=== PATIENT | male | born 1940 | race Caucasian/White ===

== ENCOUNTER 2016-10-19 15:45 | Inpatient (IN) | payer OTHER ==
[2016-10-20] MEDS ORDERED: ONDANSETRON DISINTEGRATING 4 MG TAB PO PRN ×2 (12:54→13:59)
[2016-10-20] MEDS ORDERED: ONDANSETRON DISINTEGRATING 4 MG TAB ONE (13:00)
[2016-10-20] MEDS ORDERED: SIMETHICONE 80 MG TAB CHEW PO PRN (13:59)
[2016-10-20] MEDS ORDERED: ACET/CAFFEINE/BUTA FIORICET 1 EACH TAB PO PRN (13:59)
[2016-10-20] MEDS ORDERED: BISACODYL 10 MG SUPP PR PRN (13:59)
[2016-10-20] MEDS ORDERED: HYDROCORTISONE 2.5% 30 GM CRTUBE TP PRN (13:59)
[2016-10-20] MEDS ORDERED: CARISOPRODOL 350 MG TAB PO PRN ×2 (14:25→14:35)
[2016-10-20] MEDS: ACETAMINOPHEN 500 MG TAB PO PRN (15:55)
[2016-10-20] MEDS: GABAPENTIN 100 MG CAP PO SCH ×2 (15:55→21:31)
[2016-10-20] MEDS: TAMSULOSIN HCL 0.4 MG CAP PO SCH (15:58)
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
[2016-10-20 19:04] LABS: COLOR YELLOW; LEUKOCYTE ESTERASE,URINE 2+ (NEGATIVE); NITRITE,URINE NEGATIVE (NEGATIVE)
[2016-10-20 19:09] LABS: BACTERIA TRACE /hpf (NONE SEEN); MUCUS TRACE /lpf (NONE-1+); RBC,URINE 50-182 /hpf (0-3); WBC,URINE 50-182 /hpf (0-3)
--- NOTE | 2016-10-20 19:31 | PDOREHIP ---
Admission [facility] - Admission - 3 Day Assessment Period Admission Date/Day 1: 10/20/16 Day 2: 10/21/16 Day 3: 10/22/16 - Active Diagnoses Comorbidities and Co-existing Conditions at Admission: 28176. None of the Above - Skin Conditions Unhealed Pressure Ulcer (1 or more/Stage 1 or >)-Admission: 0. No
[2016-10-20] MEDS: QUEtiapine FUMARATE 25 MG TAB PO SCH (19:59)
[2016-10-20] MEDS: PANTOPRAZOLE SODIUM 40 MG TAB PO SCH (19:59)
[2016-10-20] MEDS: ENOXAPARIN 30 MG/0.3 ML SYR SC SCH (20:00)
[2016-10-20] MEDS ORDERED: NON-FORMULARY NEW DRUG (Melatonin [Melatonin 5 Mg] 5 MG) PO SCH (21:00)
[2016-10-20] MEDS ORDERED: NON-FORMULARY NEW DRUG (Omeprazole [Omeprazole] 40 MG) PO SCH (21:00)
[2016-10-20] MEDS ORDERED: QUEtiapine FUMARATE 50 MG TAB PO SCH ×2 (21:00)
[2016-10-20] MEDS ORDERED: NS 500 ML IV ONE (22:00)
[2016-10-21] MEDS: POLYETHYLENE GLYCOL 3350 17 GM PKT PO SCH (08:22)
[2016-10-21] MEDS: NIACIN 500 MG TAB PO SCH (08:22)
[2016-10-21] MEDS: TAMSULOSIN HCL 0.4 MG CAP PO SCH (08:23)
[2016-10-21] MEDS: ASPIRIN EC 81 MG TAB PO SCH (08:23)
[2016-10-21] MEDS: ROSUVASTATIN CALCIUM 20 MG TAB PO SCH (08:23)
[2016-10-21] MEDS: PANTOPRAZOLE SODIUM 40 MG TAB PO SCH ×2 (08:23→20:08)
[2016-10-21] MEDS: ENOXAPARIN 30 MG/0.3 ML SYR SC SCH ×2 (08:24→20:10)
[2016-10-21] MEDS: ESCITALOPRAM OXALATE 10 MG TAB PO SCH (08:24)
[2016-10-21] MEDS: GABAPENTIN 100 MG CAP PO SCH ×3 (08:24→20:08)
[2016-10-21] MEDS ORDERED: Herbals/Supplements -Info Only PO SCH (09:00)
[2016-10-21 09:02] LABS: % IMMATURE GRANULYOCYTES 0.3 % (0.0-1.1); ABSOLUTE IMMATURE GRANULOCYTES 0.02 10^3/uL (0.00-0.10); ADD DIFF? NO; ADD MORPH? NO; ADD SCAN? NO; ATYPICAL LYMPHOCYTE FLAG 0 (0-99); FRAGMENT RBC FLAG 0 (0-99); HEMATOCRIT 27.1 % (40.0-51.0); HEMOGLOBIN 8.7 g/dL (13.7-17.5); LEFT SHIFT FLG 10 (0-99); LIPEMIA HEMOLYSIS FLAG 80 (0-99); MEAN CELL HEMOGLOBIN CONCENTR. 32.1 g/dL (32.4-36.7); MEAN CELL VOLUME 93.4 fL (81.5-99.8); MEAN PLATELET VOLUME 10.9 fL (8.7-11.7); PLATELET CLUMPS FLAG 0 (0-99); PLATELET COUNT 225 10^3/uL (150-400); RED CELL DISTRIBUTION WIDTH 14.5 % (11.5-15.2)
[2016-10-21 09:25] LABS: ALANINE AMINOTRANSFERASE 36 IU/L (21-72); ALBUMIN 2.3 g/dL (3.5-5.0); ALKALINE PHOSPHATASE 99 IU/L (38-126); ANION GAP 7 mEq/L (8-16); ASPARTATE AMINOTRANSFERASE 29 IU/L (17-59); BILIRUBIN,TOTAL 0.6 mg/dL (0.1-1.4); CALCIUM 7.9 mg/dL (8.5-10.4); CARBON DIOXIDE 25 mEq/l (22-31); CHLORIDE 104 mEq/L (97-110); CREATININE 1.2 mg/dL (0.7-1.3); GLOMERULAR FILTRATION RATE 59; GLUCOSE 89 mg/dL (70-100); POTASSIUM 3.8 mEq/L (3.5-5.2); SODIUM 136 mEq/L (134-144)
[2016-10-21] MEDS ORDERED: SENNOSIDES 17.6 MG/10 ML UDL PO PRN (10:01)
[2016-10-21] MEDS ORDERED: SENNOSIDES 1 TAB PO PRN (11:14)
[2016-10-21] MEDS ORDERED: CIPROFLOXACIN 500 MG TAB PO ONE (11:39)
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
[2016-10-21] MEDS: PROMETHAZINE HCL 25 MG TAB PO PRN (20:06)
[2016-10-21] MEDS: QUEtiapine FUMARATE 25 MG TAB PO SCH (20:08)
[2016-10-21] MEDS: CIPROFLOXACIN 500 MG TAB PO SCH (20:08)
[2016-10-22] MEDS: GABAPENTIN 100 MG CAP PO SCH ×3 (08:58→21:04)
[2016-10-22] MEDS: ASPIRIN EC 81 MG TAB PO SCH (08:58)
[2016-10-22] MEDS: TAMSULOSIN HCL 0.4 MG CAP PO SCH (08:58)
[2016-10-22] MEDS: ESCITALOPRAM OXALATE 10 MG TAB PO SCH (08:58)
[2016-10-22] MEDS: ROSUVASTATIN CALCIUM 20 MG TAB PO SCH (08:58)
[2016-10-22] MEDS: NIACIN 500 MG TAB PO SCH (08:58)
[2016-10-22] MEDS: POLYETHYLENE GLYCOL 3350 17 GM PKT PO SCH (08:58)
[2016-10-22] MEDS: PANTOPRAZOLE SODIUM 40 MG TAB PO SCH ×2 (08:59→20:55)
[2016-10-22] MEDS: ENOXAPARIN 30 MG/0.3 ML SYR SC SCH ×2 (08:59→20:54)
[2016-10-22] MEDS: CIPROFLOXACIN 500 MG TAB PO SCH (09:23)
[2016-10-22] MEDS ORDERED: MAGNESIUM HYDROXIDE 30 ML UDCUP PO PRN (16:09)
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
[2016-10-22] MEDS: NITROFURANTOIN MACROBID 100 MG CAP PO SCH ×2 (17:17→20:55)
[2016-10-22] MEDS: PROMETHAZINE HCL 25 MG TAB PO PRN (17:27)
[2016-10-22] MEDS: QUEtiapine FUMARATE 25 MG TAB PO SCH (20:54)
[2016-10-22] MEDS: SENNOSIDES 1 TAB PO SCH (20:55)
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
[2016-10-23] MEDS: traMADol 50 MG TAB PO PRN (09:41)
[2016-10-23] MEDS: NIACIN 500 MG TAB PO SCH (09:42)
[2016-10-23] MEDS: SENNOSIDES 1 TAB PO SCH ×2 (09:42→20:19)
[2016-10-23] MEDS: TAMSULOSIN HCL 0.4 MG CAP PO SCH (09:42)
[2016-10-23] MEDS: ESCITALOPRAM OXALATE 10 MG TAB PO SCH (09:42)
[2016-10-23] MEDS: POLYETHYLENE GLYCOL 3350 17 GM PKT PO SCH (09:42)
[2016-10-23] MEDS: ROSUVASTATIN CALCIUM 20 MG TAB PO SCH (09:42)
[2016-10-23] MEDS: ENOXAPARIN 30 MG/0.3 ML SYR SC SCH ×2 (09:42→20:20)
[2016-10-23] MEDS: NITROFURANTOIN MACROBID 100 MG CAP PO SCH ×2 (09:42→20:19)
[2016-10-23] MEDS: GABAPENTIN 100 MG CAP PO SCH ×3 (09:42→21:09)
[2016-10-23] MEDS: PANTOPRAZOLE SODIUM 40 MG TAB PO SCH ×2 (09:43→20:19)
[2016-10-23] MEDS: ASPIRIN EC 81 MG TAB PO SCH (09:43)
[2016-10-23] MEDS: QUEtiapine FUMARATE 25 MG TAB PO SCH (20:24)
[2016-10-24] MEDS: traMADol 50 MG TAB PO PRN (07:10)
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
[2016-10-24] MEDS: ENOXAPARIN 30 MG/0.3 ML SYR SC SCH ×2 (09:35→21:01)
[2016-10-24] MEDS: POLYETHYLENE GLYCOL 3350 17 GM PKT PO SCH (09:38)
[2016-10-24] MEDS: ASPIRIN EC 81 MG TAB PO SCH (09:38)
[2016-10-24] MEDS: ESCITALOPRAM OXALATE 10 MG TAB PO SCH (09:39)
[2016-10-24] MEDS: PANTOPRAZOLE SODIUM 40 MG TAB PO SCH ×2 (09:41→21:00)
[2016-10-24] MEDS: NIACIN 500 MG TAB PO SCH (09:41)
[2016-10-24] MEDS: GABAPENTIN 100 MG CAP PO SCH ×3 (09:41→21:00)
[2016-10-24] MEDS: ROSUVASTATIN CALCIUM 20 MG TAB PO SCH (09:42)
[2016-10-24] MEDS: SENNOSIDES 1 TAB PO SCH ×2 (09:43→21:00)
[2016-10-24] MEDS: TAMSULOSIN HCL 0.4 MG CAP PO SCH (09:43)
[2016-10-24] MEDS: NITROFURANTOIN MACROBID 100 MG CAP PO SCH ×2 (09:44→21:00)
[2016-10-24] MEDS ORDERED: NS W/ 20 KCl/L 500 ML IV SCH (15:15)
[2016-10-24] MEDS ORDERED: NS 500 ML IV SCH (15:30)
[2016-10-24] MEDS: QUEtiapine FUMARATE 25 MG TAB PO SCH (21:00)
[2016-10-25] MEDS: ENOXAPARIN 30 MG/0.3 ML SYR SC SCH ×2 (09:30→20:15)
[2016-10-25] MEDS: ASPIRIN EC 81 MG TAB PO SCH (09:32)
[2016-10-25] MEDS: ESCITALOPRAM OXALATE 10 MG TAB PO SCH (09:32)
[2016-10-25] MEDS: GABAPENTIN 100 MG CAP PO SCH ×3 (09:33→20:24)
[2016-10-25] MEDS: NIACIN 500 MG TAB PO SCH (09:33)
[2016-10-25] MEDS: SENNOSIDES 1 TAB PO SCH ×2 (09:34→20:15)
[2016-10-25] MEDS: ROSUVASTATIN CALCIUM 20 MG TAB PO SCH (09:34)
[2016-10-25] MEDS: POLYETHYLENE GLYCOL 3350 17 GM PKT PO SCH (09:34)
[2016-10-25] MEDS: TAMSULOSIN HCL 0.4 MG CAP PO SCH (09:34)
[2016-10-25] MEDS: NITROFURANTOIN MACROBID 100 MG CAP PO SCH ×2 (09:34→20:15)
[2016-10-25] MEDS: PANTOPRAZOLE SODIUM 40 MG TAB PO SCH ×2 (09:34→20:25)
[2016-10-25] MEDS: traMADol 50 MG TAB PO PRN (09:44)
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
[2016-10-25] MEDS: ACETAMINOPHEN 500 MG TAB PO PRN (16:35)
[2016-10-25] MEDS: QUEtiapine FUMARATE 25 MG TAB PO SCH (20:14)
[2016-10-26] MEDS: ENOXAPARIN 30 MG/0.3 ML SYR SC SCH ×2 (09:36→20:55)
[2016-10-26] MEDS: ASPIRIN EC 81 MG TAB PO SCH (09:36)
[2016-10-26] MEDS: NITROFURANTOIN MACROBID 100 MG CAP PO SCH ×2 (09:37→20:54)
[2016-10-26] MEDS: NIACIN 500 MG TAB PO SCH (09:37)
[2016-10-26] MEDS: ESCITALOPRAM OXALATE 10 MG TAB PO SCH (09:37)
[2016-10-26] MEDS: GABAPENTIN 100 MG CAP PO SCH (09:37)
[2016-10-26] MEDS: TAMSULOSIN HCL 0.4 MG CAP PO SCH (09:38)
[2016-10-26] MEDS: POLYETHYLENE GLYCOL 3350 17 GM PKT PO SCH (09:38)
[2016-10-26] MEDS: SENNOSIDES 1 TAB PO SCH ×3 (09:38→20:55)
[2016-10-26] MEDS: PANTOPRAZOLE SODIUM 40 MG TAB PO SCH ×2 (09:38→20:54)
[2016-10-26] MEDS: ROSUVASTATIN CALCIUM 20 MG TAB PO SCH (09:38)
[2016-10-26] MEDS: traMADol 50 MG TAB PO PRN (09:48)
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
[2016-10-26] MEDS: GABAPENTIN 300 MG CAP PO SCH ×2 (17:00→20:54)
[2016-10-26] MEDS: QUEtiapine FUMARATE 25 MG TAB PO SCH (20:55)
[2016-10-27] MEDS: POLYETHYLENE GLYCOL 3350 17 GM PKT PO SCH (08:45)
[2016-10-27] MEDS: ROSUVASTATIN CALCIUM 20 MG TAB PO SCH (08:46)
[2016-10-27] MEDS: ASPIRIN EC 81 MG TAB PO SCH (08:47)
[2016-10-27] MEDS: ESCITALOPRAM OXALATE 10 MG TAB PO SCH (08:47)
[2016-10-27] MEDS: ENOXAPARIN 30 MG/0.3 ML SYR SC SCH ×2 (08:47→20:36)
[2016-10-27] MEDS: GABAPENTIN 300 MG CAP PO SCH ×3 (08:48→20:35)
[2016-10-27] MEDS: NIACIN 500 MG TAB PO SCH (08:50)
[2016-10-27] MEDS: NITROFURANTOIN MACROBID 100 MG CAP PO SCH ×2 (08:51→20:35)
[2016-10-27] MEDS: TAMSULOSIN HCL 0.4 MG CAP PO SCH (08:51)
[2016-10-27] MEDS: SENNOSIDES 1 TAB PO SCH ×2 (08:51→20:35)
[2016-10-27] MEDS: PANTOPRAZOLE SODIUM 40 MG TAB PO SCH ×2 (08:51→20:35)
[2016-10-27] MEDS: traMADol 50 MG TAB PO PRN (10:40)
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
[2016-10-27] MEDS: QUEtiapine FUMARATE 25 MG TAB PO SCH (20:35)
[2016-10-28] MEDS: ENOXAPARIN 30 MG/0.3 ML SYR SC SCH ×2 (09:53→20:09)
[2016-10-28] MEDS: GABAPENTIN 300 MG CAP PO SCH ×3 (09:53→20:10)
[2016-10-28] MEDS: ESCITALOPRAM OXALATE 10 MG TAB PO SCH (09:53)
[2016-10-28] MEDS: ASPIRIN EC 81 MG TAB PO SCH (09:53)
[2016-10-28] MEDS: POLYETHYLENE GLYCOL 3350 17 GM PKT PO SCH (09:54)
[2016-10-28] MEDS: NIACIN 500 MG TAB PO SCH (09:54)
[2016-10-28] MEDS: PANTOPRAZOLE SODIUM 40 MG TAB PO SCH ×2 (09:54→20:10)
[2016-10-28] MEDS: NITROFURANTOIN MACROBID 100 MG CAP PO SCH ×2 (09:54→20:10)
[2016-10-28] MEDS: ROSUVASTATIN CALCIUM 20 MG TAB PO SCH (09:55)
[2016-10-28] MEDS: SENNOSIDES 1 TAB PO SCH ×2 (09:55→20:10)
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
[2016-10-28 17:24] LABS: % IMMATURE GRANULYOCYTES 0.4 % (0.0-1.1); ABSOLUTE IMMATURE GRANULOCYTES 0.03 10^3/uL (0.00-0.10); ADD DIFF? NO; ADD MORPH? NO; ADD SCAN? NO; ATYPICAL LYMPHOCYTE FLAG 0 (0-99); FRAGMENT RBC FLAG 0 (0-99); HEMATOCRIT 34.2 % (40.0-51.0); HEMOGLOBIN 10.8 g/dL (13.7-17.5); LEFT SHIFT FLG 0 (0-99); LIPEMIA HEMOLYSIS FLAG 80 (0-99); MEAN CELL HEMOGLOBIN 30.3 pg (27.9-34.1); MEAN CELL HEMOGLOBIN CONCENTR. 31.6 g/dL (32.4-36.7); MEAN CELL VOLUME 95.8 fL (81.5-99.8); MEAN PLATELET VOLUME 10.4 fL (8.7-11.7); PLATELET CLUMPS FLAG 10 (0-99); PLATELET COUNT 270 10^3/uL (150-400); RED BLOOD CELL COUNT 3.57 10^6/uL (4.40-6.38); RED CELL DISTRIBUTION WIDTH 14.6 % (11.5-15.2)
[2016-10-29] MEDS: ENOXAPARIN 30 MG/0.3 ML SYR SC SCH ×2 (08:35→20:28)
[2016-10-29] MEDS: POLYETHYLENE GLYCOL 3350 17 GM PKT PO SCH (08:37)
[2016-10-29] MEDS: ESCITALOPRAM OXALATE 10 MG TAB PO SCH (08:39)
[2016-10-29] MEDS: ASPIRIN EC 81 MG TAB PO SCH (08:39)
[2016-10-29] MEDS: GABAPENTIN 300 MG CAP PO SCH ×3 (08:40→20:28)
[2016-10-29] MEDS: NITROFURANTOIN MACROBID 100 MG CAP PO SCH ×2 (08:41→20:28)
[2016-10-29] MEDS: PANTOPRAZOLE SODIUM 40 MG TAB PO SCH ×2 (08:41→20:28)
[2016-10-29] MEDS: SENNOSIDES 1 TAB PO SCH ×2 (08:42→20:28)
[2016-10-29] MEDS: ROSUVASTATIN CALCIUM 20 MG TAB PO SCH (08:42)
[2016-10-29] MEDS: NIACIN 500 MG TAB PO SCH (08:44)
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
[2016-10-30] MEDS: POLYETHYLENE GLYCOL 3350 17 GM PKT PO SCH (08:30)
[2016-10-30] MEDS: ESCITALOPRAM OXALATE 10 MG TAB PO SCH (08:32)
[2016-10-30] MEDS: ASPIRIN EC 81 MG TAB PO SCH (08:32)
[2016-10-30] MEDS: NITROFURANTOIN MACROBID 100 MG CAP PO SCH (08:33)
[2016-10-30] MEDS: PANTOPRAZOLE SODIUM 40 MG TAB PO SCH ×2 (08:33→21:22)
[2016-10-30] MEDS: GABAPENTIN 300 MG CAP PO SCH ×3 (08:33→21:22)
[2016-10-30] MEDS: SENNOSIDES 1 TAB PO SCH ×2 (08:33→21:22)
[2016-10-30] MEDS: ROSUVASTATIN CALCIUM 20 MG TAB PO SCH (08:34)
[2016-10-30] MEDS: NIACIN 500 MG TAB PO SCH (08:35)
[2016-10-30] MEDS: ENOXAPARIN 30 MG/0.3 ML SYR SC SCH ×2 (08:35→21:26)
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
[2016-10-30 18:48] VITALS: O2SAT 94
[2016-10-30] MEDS ORDERED: ENOXAPARIN 60 MG/0.6 ML SYR SC ONE (21:00)
[2016-10-31] MEDS: ASPIRIN EC 81 MG TAB PO SCH (08:05)
[2016-10-31] MEDS: ESCITALOPRAM OXALATE 10 MG TAB PO SCH (08:06)
[2016-10-31] MEDS: NIACIN 500 MG TAB PO SCH (08:06)
[2016-10-31] MEDS: PANTOPRAZOLE SODIUM 40 MG TAB PO SCH (08:06)
[2016-10-31] MEDS: GABAPENTIN 300 MG CAP PO SCH ×2 (08:06→16:31)
[2016-10-31] MEDS: POLYETHYLENE GLYCOL 3350 17 GM PKT PO SCH (08:06)
[2016-10-31] MEDS: ROSUVASTATIN CALCIUM 20 MG TAB PO SCH (08:07)
[2016-10-31] MEDS: SENNOSIDES 1 TAB PO SCH (08:07)
[2016-10-31 08:10] VITALS: RESP 14; TEMP 98.3
[2016-10-31] MEDS: ENOXAPARIN 30 MG/0.3 ML SYR SC SCH (10:18)
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
[2016-10-31] MEDS: traMADol 50 MG TAB PO PRN (13:16)
--- NOTE | 2016-10-31 14:49 | CPEKG ---
Heart Rate: 74 RR Interval: 811 P-R Interval: 152 QRSD Interval: 92 QT Interval: 452 QTC Interval: 502 P [place]: -15 QRS [place]: -48 T Wave [place]: -67 EKG Severity - ABNORMAL ECG - EKG Impression: SINUS RHYTHM EKG Impression: LEFT ANTERIOR FASCICULAR BLOCK EKG Impression: ABNORMAL T, PROBABLE ISCHEMIA, INFERIOR LEADS EKG Impression: PROLONGED QT INTERVAL Electronically Signed By: Timothy Marie 31-Oct-2016 17:42:57
[2016-10-31 15:07] LABS: HEMATOCRIT 34.7 % (40.0-51.0); HEMOGLOBIN 11.2 g/dL (13.7-17.5); MEAN CELL HEMOGLOBIN 29.9 pg (27.9-34.1); MEAN CELL HEMOGLOBIN CONCENTR. 32.3 g/dL (32.4-36.7); MEAN CELL VOLUME 92.5 fL (81.5-99.8); RED BLOOD CELL COUNT 3.75 10^6/uL (4.40-6.38); RED CELL DISTRIBUTION WIDTH 14.3 % (11.5-15.2)
[2016-10-31 15:15] LABS: ANION GAP 9 mEq/L (8-16); CALCIUM 8.9 mg/dL (8.5-10.4); CARBON DIOXIDE 25 mEq/l (22-31); CHLORIDE 103 mEq/L (97-110); CREATININE 0.8 mg/dL (0.7-1.3); GLOMERULAR FILTRATION RATE > 60; GLUCOSE 99 mg/dL (70-100); SODIUM 137 mEq/L (134-144)
[2016-10-31 15:21] VITALS: BP 109/64; PULSE 77
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
[2016-10-31 18:00] LABS: MAGNESIUM 1.7 mg/dL (1.6-2.3)
[2016-10-31 18:12] LABS: CREATINE KINASE-MB FRACTION 0.74 ng/mL (0-3.19); TROPONIN I 0.029 ng/mL (0-0.034)
[2016-10-31] MEDS ORDERED: NIACIN 500 MG TAB PO SCH (21:00)
[2016-11-01] MEDS ORDERED: NIACIN 500 MG TAB PO SCH (21:00)
== END 2016-10-31 18:55 | disposition still patient (30) | DRG 949 ==
LOC: EEVIPCON 10-20 12:36 → BREH 10-20 12:36
PROVIDERS: ADMIT Internal Medicine; ATTEND Internal Medicine
PROC: F08Z7ZZ Vocational Activities and Functional Community or Work Reintegration Skills Treatment (ICD-10-PCS; principal; 2016-10-20)
PROC: F0636ZZ Communicative/Cognitive Integration Skills Treatment of Neurological System - Whole Body (ICD-10-PCS; principal; 2016-10-20)
PROC: F07M3ZZ Motor Function Treatment of Musculoskeletal System - Whole Body (ICD-10-PCS; principal; 2016-10-20)
DX: Z48.811 Encounter for surgical aftercare following surgery on the nervous system (principal); S06.5X9D Traumatic subdural hemorrhage with loss of consciousness of unspecified duration, subsequent encounter; S12.601D Unspecified nondisplaced fracture of seventh cervical vertebra, subsequent encounter for fracture with routine healing; S22.080D Wedge compression fracture of T11-T12 vertebra, subsequent encounter for fracture with routine healing; S32.020D Wedge compression fracture of second lumbar vertebra, subsequent encounter for fracture with routine healing; S32.030D Wedge compression fracture of third lumbar vertebra, subsequent encounter for fracture with routine healing; S22.20XD Unspecified fracture of sternum, subsequent encounter for fracture with routine healing; S22.39XD Fracture of one rib, unspecified side, subsequent encounter for fracture with routine healing; S04.011D Injury of optic nerve, right eye, subsequent encounter; V49.40XD Driver injured in collision with unspecified motor vehicles in traffic accident, subsequent encounter; R11.0 Nausea; F05 Delirium due to known physiological condition; K26.3 Acute duodenal ulcer without hemorrhage or perforation; D64.89 Other specified anemias; J90 Pleural effusion, not elsewhere classified; M48.07 Spinal stenosis, lumbosacral region; M48.04 Spinal stenosis, thoracic region; M48.02 Spinal stenosis, cervical region; E78.5 Hyperlipidemia, unspecified; G14 Postpolio syndrome; D62 Acute posthemorrhagic anemia; N39.0 Urinary tract infection, site not specified; B95.2 Enterococcus as the cause of diseases classified elsewhere; K59.00 Constipation, unspecified
CPT/HCPCS: 92507-GN; 92522-GN; 97110-GO; 97110-GP; 97112-GP; 97116-GP; 97140-GO; 97162-GP; 97166-GO; 97530-GO; 97530-GP; 97532-GO; 97535-GO; J1650

== ENCOUNTER 2016-10-31 17:14 | Inpatient (IN) | payer OTHER ==
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
--- NOTE | 2016-10-31 17:28 | CPEKG ---
Heart Rate: 86 RR Interval: 698 P-R Interval: 156 QRSD Interval: 90 QT Interval: 404 QTC Interval: 484 P [place]: 75 QRS [place]: -47 T Wave [place]: -62 EKG Severity - ABNORMAL ECG - EKG Impression: SINUS RHYTHM EKG Impression: PROBABLE INFERIOR INFARCT, AGE INDETERMINATE EKG Impression: LATERAL LEADS ARE ALSO INVOLVED EKG Impression: BORDERLINE PROLONGED QT INTERVAL Electronically Signed By: Timothy Marie 31-Oct-2016 17:42:51
[2016-10-31 17:30] LABS: % IMMATURE GRANULYOCYTES 0.4 % (0.0-1.1); ABSOLUTE IMMATURE GRANULOCYTES 0.03 10^3/uL (0.00-0.10); ADD DIFF? NO; ADD MORPH? NO; ADD SCAN? NO; ATYPICAL LYMPHOCYTE FLAG 10 (0-99); FRAGMENT RBC FLAG 0 (0-99); HEMATOCRIT 34.3 % (40.0-51.0); HEMOGLOBIN 11.3 g/dL (13.7-17.5); LEFT SHIFT FLG 0 (0-99); LIPEMIA HEMOLYSIS FLAG 80 (0-99); MEAN CELL HEMOGLOBIN CONCENTR. 32.9 g/dL (32.4-36.7); MEAN PLATELET VOLUME 10.3 fL (8.7-11.7); PLATELET CLUMPS FLAG 10 (0-99); PLATELET COUNT 219 10^3/uL (150-400); RED BLOOD CELL COUNT 3.65 10^6/uL (4.40-6.38); RED CELL DISTRIBUTION WIDTH 14.2 % (11.5-15.2)
[2016-10-31 17:47] LABS: ANION GAP 9 mEq/L (8-16); CALCIUM 8.9 mg/dL (8.5-10.4); CARBON DIOXIDE 26 mEq/l (22-31); CHLORIDE 102 mEq/L (97-110); CREATININE 0.7 mg/dL (0.7-1.3); GLOMERULAR FILTRATION RATE > 60; GLUCOSE 92 mg/dL (70-100); POTASSIUM 3.9 mEq/L (3.5-5.2); SODIUM 137 mEq/L (134-144)
--- NOTE | 2016-10-31 18:12 | DX ---
AP and lateral chest History: Chest pain, from rehabilitation. Reason trauma. Comparison: Portable chest October 19, 2016. Outside MR thoracic and lumbar spine October 08, 2016. Findings: A small right pneumothorax is new since the comparison. There is improved aeration of the r ight lung base with decreased consolidation and a small pleural effusion. The left lung is clear. Hea rt size is normal. There is no mediastinal shift. Minimally displaced lateral right seventh rib and m ildly displaced posterior right ninth rib fractures are unchanged. Mild compression fracture at T12 a nd moderate compression fracture at L1 and appears stable. Cervical ribs are noted. Impression: 1. Small right pneumothorax, new since October 19, without evidence of tension. 2. Stable right seventh and ninth rib fractures. 3. Improved small right pleural effusion with basilar consolidation. Findings discussed with Timothy Marie 10/31/2016 at 1805 hours.
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
[2016-10-31] MEDS ORDERED: HYDROmorphONE/DILAUDID 1 MG/ML SYR ONE (20:25)
--- NOTE | 2016-10-31 20:51 | CT ---
CT of the Chest (Without Contrast) Clinical Indications: Trauma. Known effusion. Technique: Multidetector helical CT imaging was performed from the superior thoracic inlet to the di aphragm. The radiologist manipulated images at the computer workstation. Dose reduction techniques were utilized. Comparison: MRIs October 08, 2016. No recent CT scan. January 28, 2008. Findings: Lung windows: The patient has a moderate right-sided pleural effusion that appears to be layering. There is a small right-sided pneumothorax. There is a partially healed right posterior rib fracture at T12, T11, and T9. The rib fractures at T10, T11, and T12 are comminuted, with a large gap at the T10th one. Nondisplaced fractures are also present at T8, with partial healing. The spinous process fractures of L1, L2 also show mild interval healing. The compression deformity o f L2 and T12 are unchanged in degree compared to the MRI performed in September. No new compression de formities. No left-sided fractures. No new compression fracture of the thoracic spine. The expanded lung parenchyma is clear, without consolidation, nodules, or mass. The heart size is no rmal. Coronary calcifications are present. There is mild atherosclerotic disease of the thoracic ao rta. Impression: 1. Moderate right-sided pleural effusion that is layering. 2. Small right pneumothorax. 3. Multiple right-sided rib fractures, with some healing, as above described. 4. Lumbar compression fractures, as above described. All the above findings are discussed with Dr. Gaston, who was aware of the above findings from a prev ious study. This study was performed mainly to evaluate for size and layering of the right-sided ple ural effusion.
[2016-10-31] MEDS ORDERED: HYDROmorphONE/DILAUDID 1 MG/ML SYR IVP ONE ×3 (21:40→23:22)
--- NOTE | 2016-10-31 22:43 | DX ---
Single View Chest October 31, 2016 Indication: Post chest tube placement. Findings: There has been interval removal of a right-sided pleural effusion. The pneumothorax is ve ry minimal at the right lung apex, decreased. Multiple rib fractures are as previously seen. The michelle ngs are otherwise clear. The chest tube terminates in the right upper lobe medially. Impression: 1. Right upper lobe chest tube placement. 2. Decreased pneumothorax and right pleural effusion.
[2016-11-01] MEDS ORDERED: BISACODYL 10 MG SUPP PR PRN (00:39)
[2016-11-01] MEDS ORDERED: CARISOPRODOL 350 MG TAB PO PRN (00:39)
[2016-11-01] MEDS ORDERED: SIMETHICONE 80 MG TAB CHEW PO PRN (00:39)
[2016-11-01] MEDS ORDERED: HYDROCORTISONE 2.5% 30 GM CRTUBE TP PRN (00:39)
[2016-11-01] MEDS ORDERED: ACETAMINOPHEN 500 MG TAB PO PRN (00:39)
[2016-11-01] MEDS ORDERED: ONDANSETRON 4 MG/2 ML VIAL IVP PRN (00:43)
[2016-11-01] MEDS ORDERED: ONDANSETRON DISINTEGRATING 4 MG TAB PO PRN (00:43)
[2016-11-01] MEDS ORDERED: ACETAMINOPHEN 325 MG TAB PO PRN (00:43)
[2016-11-01] MEDS ORDERED: NS 1,000 ML IV SCH (01:00)
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
--- NOTE | 2016-11-01 05:10 | GOP ---
[f rep st] OPERATIVE REPORT DATE OF OPERATION: 10/31/2016 SURGEON: Walter Gaston MD PREOPERATIVE DIAGNOSIS: Right hydropneumothorax. POSTOPERATIVE DIAGNOSIS: Right hydropneumothorax. PROCEDURE PERFORMED: Placement of a 28-Chinese chest tube in the right chest. FINDINGS: Right hydropneumothorax. INDICATIONS: Right hydropneumothorax. DESCRIPTION OF PROCEDURE: The patient was positioned in the left lateral decubitus position. His c hest is carefully clipped, prepped, and draped. Time-out was carried out and agreed to by all membe rs of the operative team. The skin, after a sterile field has been developed, was anesthetized with 1% Xylocaine inferior to approximately the 6th rib. The periosteum was anesthetized as is the 5-6 interspace. The skin was sharply incised. A spreading technique was used to enter the chest. A fi nger was used to easily sweep the chest to make sure that there was no adherent lung tissue and ther e was not. A 28-Chinese chest tube was directed in a cephalad direction. It was connected to a Pleur-Evac. Immediately a large volume was obtained (approximately 900 cc in t he 1st 15 minutes the chest tube was in). The chest tube was secured at the skin level with a 2-0 s ilk suture using a vertical mattress technique, with the tails tied around the tube. An additional vertical mattress suture was placed to close the skin incision. A sterile dressing was applied. A followup chest x-ray shows essentially complete evacuation of the pleural space and resolution of th e pneumothorax. /[id number]/MODL
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
[2016-11-01 06:43] LABS: % IMMATURE GRANULYOCYTES 0.3 % (0.0-1.1); ABSOLUTE IMMATURE GRANULOCYTES 0.02 10^3/uL (0.00-0.10); ADD DIFF? NO; ADD MORPH? NO; ADD SCAN? NO; ATYPICAL LYMPHOCYTE FLAG 0 (0-99); FRAGMENT RBC FLAG 20 (0-99); HEMATOCRIT 30.1 % (40.0-51.0); HEMOGLOBIN 9.8 g/dL (13.7-17.5); LEFT SHIFT FLG 0 (0-99); LIPEMIA HEMOLYSIS FLAG 80 (0-99); MEAN CELL HEMOGLOBIN 30.5 pg (27.9-34.1); MEAN CELL HEMOGLOBIN CONCENTR. 32.6 g/dL (32.4-36.7); MEAN CELL VOLUME 93.8 fL (81.5-99.8); MEAN PLATELET VOLUME 10.4 fL (8.7-11.7); PLATELET CLUMPS FLAG 0 (0-99); PLATELET COUNT 207 10^3/uL (150-400); RED BLOOD CELL COUNT 3.21 10^6/uL (4.40-6.38); RED CELL DISTRIBUTION WIDTH 14.4 % (11.5-15.2)
[2016-11-01 06:52] LABS: APTT 26.3 SEC (23.0-38.0); INR 1.17 (0.83-1.16); PROTIME(PATIENT) 14.9 SEC (12.0-15.0)
[2016-11-01 07:54] LABS: ANION GAP 6 mEq/L (8-16); CALCIUM 8.5 mg/dL (8.5-10.4); CARBON DIOXIDE 24 mEq/l (22-31); CHLORIDE 106 mEq/L (97-110); CREATININE 0.7 mg/dL (0.7-1.3); GLOMERULAR FILTRATION RATE > 60; GLUCOSE 90 mg/dL (70-100); POTASSIUM 4.1 mEq/L (3.5-5.2); SODIUM 136 mEq/L (134-144)
[2016-11-01 08:03] LABS: TROPONIN I 0.027 ng/mL (0-0.034)
[2016-11-01] MEDS: ROSUVASTATIN CALCIUM 20 MG TAB PO SCH (08:27)
[2016-11-01] MEDS: TAMSULOSIN HCL 0.4 MG CAP PO SCH (08:27)
[2016-11-01] MEDS: SENNOSIDES 1 TAB PO SCH ×2 (08:27→21:09)
[2016-11-01] MEDS: GABAPENTIN 300 MG CAP PO SCH ×3 (08:27→21:09)
[2016-11-01] MEDS: ESCITALOPRAM OXALATE 10 MG TAB PO SCH (08:27)
[2016-11-01] MEDS: POLYETHYLENE GLYCOL 3350 17 GM PKT PO SCH (08:29)
[2016-11-01] MEDS: PANTOPRAZOLE SODIUM 40 MG TAB PO SCH ×2 (08:31→21:09)
--- NOTE | 2016-11-01 08:58 | SOAPPROG ---
SOAP Progress Note Assessment/Plan: Assessment: Plan: Subjective: feels better, breathing easier. lungs clear abd soft chest tube without air leak, drained 1 liter sero sang fluid. cxr today looks good. plan: ct to water seal, check cxr in am. Objective: Vital Signs Temp Pulse Resp BP Pulse Ox 36.4 C 62 16 130/78 H 94 11/01/16 08:10 11/01/16 08:10 11/01/16 08:10 11/01/16 08:10 11/01/16 08:10 Laboratory Results 11/01/16 06:30 11/01/16 06:30 10/31/16 11/01/16 11/02/16 05:59 05:59 05:59 Intake Total 1020 Output Total 1025 Balance -5 PT 14.9 SEC (12.0-15.0) 11/01/16 06:30 INR 1.17 (0.83-1.16) H 11/01/16 06:30 ICD10 Worksheet Patient Problems: Problems Problem Status Onset Abnormal EKG Acute Pneumothorax on right Acute Anemia due to GI blood loss Acute History of yajaira hole surgery Acute Impaired cognition Acute Impaired mobility and ADLs Acute Palpitations Acute Pleural effusion on right Acute SDH (subdural hematoma) Acute Sciatica Acute Stenosis, spinal, lumbar Acute UTI (urinary tract infection) Acute
--- NOTE | 2016-11-01 09:49 | US ---
Left Lower Extremity Deep Venous Duplex Doppler Ultrasound History: Left lower extremity leg pain and swelling. Technique: The left lower extremity deep venous system and veins of the proximal calf were interrog ated with grayscale, color, and spectral Doppler imaging. Findings: The left common femoral, superficial femoral, popliteal, and veins of the calf normally c ompress on grayscale imaging. The deep venous system and veins of the proximal calf have normal flow and expected variability. The visualized greater saphenous vein compresses normally without thrombu s. . Impression: No deep venous thrombosis in the left lower extremity. The study was performed as an emergency on-call case and discussed by telephone with the ER physicgeorges n at 0030 hrs. The final interpretation is concordant with the original communication.
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
[2016-11-01] MEDS: traMADol 50 MG TAB PO PRN ×2 (11:55→17:59)
--- NOTE | 2016-11-01 12:32 | ECHO ---
[id number] + + [address] : : [place] [address] : : [phone] + + Adult Echocardiographic Report + ---+ :Name: JESSICA UP DStudy Date: 11/01/2016 07:44 AM : : Hospital Admission Number: [id number] : :: 1940 Gender: Male Height: 74 in : :Age: 76 yrs Race: WH Weight: 220 l b : :Reason For Study: Abnormal EKG/inderterminate troponin : : BSA: 2.3 mete rs2: + ---+ MMode/2D Measurements \T\ Calculations LVIDd: 4.9 cm EDV(Teich): Ao root diam: LVOT diam: 2.4 cm 113.4 ml 3.4 cm LVOT area: LA dimension: 4.5 cm2 3.8 cm LVLd ap4: 9.3 cm SV(MOD-sp4): EDV(MOD-sp4): 54.0 ml 93.0 ml LVLs ap4: 7.2 cm ESV(MOD-sp4): 39.0 ml EF(MOD-sp4): 58.1 % Normal Measurement Values: + + :LVIDd (3.5-5.7cm) IVSd (0.6-1.1cm) LVPWd (0.6-1.1cm) Aortic Root (2.0-3.7cm)Left Atrium (1.5-4.0cm): :LV Vol(d) (76-115ml) LV Vol(s) (29-48ml) Ejec Fraction (50-65%)PV Edwardo (0.6- 1.2m/s) TV Edwardo (0.4-1.0m/s) : :MV E Edwardo (0.8-1.0m/s)MV A Edwardo (0.3-1.0m/s)LVOT Edwardo (0.7-1.2m/s) Asc Ao Edwardo ( 0.9-1.8m/s) : + + Doppler Measurements \T\ Calculations MV E max edwardo: 59.7 cm/sec Ao V2 max: 146.5 cm/sec MV A max edwardo: 66.1 cm/sec Ao max P.6 mmHg MV E/A: 0.90 Left Ventricle The left ventricle is normal in size. There is normal left ventricular wall thickness. E/a wave reversal. EF estimate is 50-55%. There is Doppler evidence for diastolic dysfunction. LV basal/mid inferoseptal and basal inferior hughes appears akinetic. All remaining segments have normal motion. Right Ventricle The right ventricle is normal in size and function. Atria The left atrial size is normal. Right atrial size is normal. The interatrial septum is intact with no evidence for an atrial septal defect. Mitral Valve There is mild mitral annular calcification. The mitral valve leaflets appear thickened, but open well. There is no evidence of mitral valve prolapse. There is no mitral valve stenosis. There is mild mitral regurgitation. Tricuspid Valve Normal tricuspid valve. There is trace tricuspid regurgitation. Aortic Valve The aortic valve is trileaflet. There is mild aortic valve calcification. There is no aortic stenosis. There is no aortic insufficiency. Pulmonic Valve The pulmonic valve is normal in structure and function. There is no pulmonic valvular regurgitation. Great Vessels The aortic root is normal size. Pericardium/Pleural There is no pericardial effusion. There is no pleural effusion. Conclusion A complete two-dimensional transthoracic echocardiogram was performed (2D, M-mode, Doppler and color flow Doppler). LV basal/mid inferoseptal and basal inferior hughes appears akinetic. All remaining segments have normal motion. E/a wave reversal. EF estimate is 50-55%. There is mild mitral regurgitation. There is trace tricuspid regurgitation. There is Doppler evidence for diastolic dysfunction. There is no pleural effusion. Final Reading Physician: Narinder Lobo electronically signed on 11/01/2016 12:30 PM Ordering Physician: Matias Finley Performed By: Varsha Le, JOSE ALBERTOCS
[2016-11-02 05:09] LABS: % IMMATURE GRANULYOCYTES 0.2 % (0.0-1.1); ABSOLUTE IMMATURE GRANULOCYTES 0.01 10^3/uL (0.00-0.10); ADD DIFF? NO; ADD MORPH? NO; ADD SCAN? NO; ATYPICAL LYMPHOCYTE FLAG 20 (0-99); FRAGMENT RBC FLAG 0 (0-99); HEMATOCRIT 31.9 % (40.0-51.0); HEMOGLOBIN 10.4 g/dL (13.7-17.5); LEFT SHIFT FLG 0 (0-99); LIPEMIA HEMOLYSIS FLAG 80 (0-99); MEAN CELL HEMOGLOBIN 30.4 pg (27.9-34.1); MEAN CELL HEMOGLOBIN CONCENTR. 32.6 g/dL (32.4-36.7); MEAN CELL VOLUME 93.3 fL (81.5-99.8); MEAN PLATELET VOLUME 10.4 fL (8.7-11.7); PLATELET CLUMPS FLAG 10 (0-99); PLATELET COUNT 201 10^3/uL (150-400); RED BLOOD CELL COUNT 3.42 10^6/uL (4.40-6.38); RED CELL DISTRIBUTION WIDTH 14.1 % (11.5-15.2)
[2016-11-02 05:21] LABS: ANION GAP 6 mEq/L (8-16); CALCIUM 8.5 mg/dL (8.5-10.4); CARBON DIOXIDE 25 mEq/l (22-31); CHLORIDE 104 mEq/L (97-110); CREATININE 0.7 mg/dL (0.7-1.3); GLOMERULAR FILTRATION RATE > 60; GLUCOSE 89 mg/dL (70-100); SODIUM 135 mEq/L (134-144)
[2016-11-02] MEDS: ESCITALOPRAM OXALATE 10 MG TAB PO SCH (09:09)
[2016-11-02] MEDS: ROSUVASTATIN CALCIUM 20 MG TAB PO SCH (09:09)
[2016-11-02] MEDS: TAMSULOSIN HCL 0.4 MG CAP PO SCH (09:09)
[2016-11-02] MEDS: PANTOPRAZOLE SODIUM 40 MG TAB PO SCH ×2 (09:09→21:50)
[2016-11-02] MEDS: GABAPENTIN 300 MG CAP PO SCH ×3 (09:10→21:50)
[2016-11-02] MEDS: SENNOSIDES 1 TAB PO SCH ×2 (09:10→23:41)
[2016-11-02] MEDS: POLYETHYLENE GLYCOL 3350 17 GM PKT PO SCH (09:12)
--- NOTE | 2016-11-02 10:26 | SOAPPROG ---
Downtime Inpatient Late Entry SOAP Note: S/P right chest tube placement for right pleural effusion 1500 ml out over 48 hours < 100 ml last 15 hours/no air leak/CXR shows tiny apical pneumo Right closed tube thoracostomy tube removed using sterile technique/occlusive dressing applied Rec: check CXR post removal leave dressing in place for 72 hours/only change if additional drainage accumulates FU one week for suture removal. S MD Rosa, FACS
[2016-11-02] MEDS ORDERED: REGADENOSON 0.4 MG/5 ML SYR IVP ONE (13:33)
--- NOTE | 2016-11-02 15:44 | SOAPPROG ---
Downtime Inpatient MD Late Entry SOAP Note: post chest tube removal CXR shows no significant change in the tiny apical pneumothorax and no pleural effusion I would only obtain a repeat CXR at this point if new signs or symptoms develop He should avoid air travel for the next 2 weeks S MD Rosa, FACS
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
[2016-11-03 04:54] LABS: % IMMATURE GRANULYOCYTES 0.4 % (0.0-1.1); ABSOLUTE IMMATURE GRANULOCYTES 0.02 10^3/uL (0.00-0.10); ADD DIFF? NO; ADD MORPH? NO; ADD SCAN? NO; ATYPICAL LYMPHOCYTE FLAG 10 (0-99); FRAGMENT RBC FLAG 0 (0-99); HEMATOCRIT 31.8 % (40.0-51.0); HEMOGLOBIN 10.3 g/dL (13.7-17.5); LEFT SHIFT FLG 0 (0-99); LIPEMIA HEMOLYSIS FLAG 80 (0-99); MEAN CELL HEMOGLOBIN 30.3 pg (27.9-34.1); MEAN CELL HEMOGLOBIN CONCENTR. 32.4 g/dL (32.4-36.7); MEAN CELL VOLUME 93.5 fL (81.5-99.8); MEAN PLATELET VOLUME 10.5 fL (8.7-11.7); PLATELET CLUMPS FLAG 10 (0-99); PLATELET COUNT 206 10^3/uL (150-400)
[2016-11-03 05:12] LABS: ANION GAP 6 mEq/L (8-16); CALCIUM 8.5 mg/dL (8.5-10.4); CARBON DIOXIDE 25 mEq/l (22-31); CHLORIDE 105 mEq/L (97-110); CHOLESTEROL 94 mg/dL (140-220); CHOLESTEROL/HDL RATIO 2.69 RATIO (1.00-4.97); CREATININE 0.6 mg/dL (0.7-1.3); GLOMERULAR FILTRATION RATE > 60; GLUCOSE 86 mg/dL (70-100); HIGH DENSITY LIPOPROTEIN 35 mg/dL (40-65); LDL/HDL RATIO 1.37 RATIO (1.00-3.64); LOW DENSITY LIPOPROTEIN 48 mg/dL (80-100); NON-HIGH DENSITY LIPOPROTEIN 59 mg/dL (90-129); SODIUM 136 mEq/L (134-144); TRIGLYCERIDE 55 mg/dL (40-150); VERY LOW DENSITY LIPOPROTEINS 11 mg/dL (8-25)
[2016-11-03] MEDS ORDERED: LISINOPRIL 2.5 MG TAB PO SCH (09:00)
[2016-11-03] MEDS ORDERED: NS 1,000 ML IV ONE (09:25)
[2016-11-03] MEDS: ROSUVASTATIN CALCIUM 20 MG TAB PO SCH (09:34)
[2016-11-03] MEDS: ESCITALOPRAM OXALATE 10 MG TAB PO SCH (09:34)
[2016-11-03] MEDS: TAMSULOSIN HCL 0.4 MG CAP PO SCH (09:34)
[2016-11-03] MEDS: GABAPENTIN 300 MG CAP PO SCH ×4 (09:34→20:34)
[2016-11-03] MEDS: PANTOPRAZOLE SODIUM 40 MG TAB PO SCH ×2 (09:35→20:35)
[2016-11-03] MEDS: POLYETHYLENE GLYCOL 3350 17 GM PKT PO SCH (09:35)
[2016-11-03] MEDS: SENNOSIDES 1 TAB PO SCH ×2 (09:35→20:35)
[2016-11-03] MEDS: CARVEDILOL 3.125 MG TAB PO SCH (09:36)
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
[2016-11-04] MEDS: TAMSULOSIN HCL 0.4 MG CAP PO SCH (07:53)
[2016-11-04] MEDS: PANTOPRAZOLE SODIUM 40 MG TAB PO SCH ×2 (07:53→20:31)
[2016-11-04] MEDS: SENNOSIDES 1 TAB PO SCH ×2 (07:53→20:31)
[2016-11-04] MEDS: ESCITALOPRAM OXALATE 10 MG TAB PO SCH (07:53)
[2016-11-04] MEDS: GABAPENTIN 300 MG CAP PO SCH ×3 (07:53→20:31)
[2016-11-04] MEDS: ROSUVASTATIN CALCIUM 20 MG TAB PO SCH (07:53)
[2016-11-04] MEDS: POLYETHYLENE GLYCOL 3350 17 GM PKT PO SCH (07:54)
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
[2016-11-04] MEDS: CARVEDILOL 3.125 MG TAB PO SCH (18:14)
[2016-11-05] MEDS: GABAPENTIN 300 MG CAP PO SCH (08:29)
[2016-11-05] MEDS: PANTOPRAZOLE SODIUM 40 MG TAB PO SCH (08:29)
[2016-11-05] MEDS: POLYETHYLENE GLYCOL 3350 17 GM PKT PO SCH (08:29)
[2016-11-05] MEDS: ROSUVASTATIN CALCIUM 20 MG TAB PO SCH (08:30)
[2016-11-05] MEDS: TAMSULOSIN HCL 0.4 MG CAP PO SCH (08:30)
[2016-11-05] MEDS: SENNOSIDES 1 TAB PO SCH (08:30)
[2016-11-05] MEDS: CARVEDILOL 3.125 MG TAB PO SCH (08:30)
[2016-11-05] MEDS: ESCITALOPRAM OXALATE 10 MG TAB PO SCH (08:30)
[2016-11-05] MEDS ORDERED: ENOXAPARIN 40 MG/0.4 ML SYR SC SCH (09:00)
--- NOTE | 2016-11-05 10:13 | PDIAF ---
- Diagnosis Diagnosis: Inferior CT, PTX, b/l subdural hematoma, urinary retention Code Status: Full Code - Medication Management Discharge Medications: Medications to Continue on Transfer Bisacodyl [Dulcolax] 10 mg RC DAILY PRN 10/20/16 [Last Taken 10/22/16 15:46 10MG ] Acetaminophen [Tylenol ES 500 mg (*)] 1,000 mg PO TID PRN #0 tab 10/31/16 [Last Taken 10/25/16 16:35 1000 MG] Aspirin EC [Aspirin EC 81 mg (*)] 81 mg PO DAILY #0 tab 10/31/16 [Last Taken 08:05 81MG] Carisoprodol [Soma (*)] 175 mg PO HS PRN #0 tab 10/31/16 [Last Taken Unknown] Escitalopram Oxalate [Lexapro 10 MG] 10 mg PO DAILY #0 tab 10/31/16 [Last Taken 10/31/16 08:06 10MG] Gabapentin [Neurontin 300 MG (*)] 300 mg PO TID #0 cap 10/31/16 [Last Taken 16:31 300 MG] Hydrocortisone 2.5% [Hydrocortisone 2.5% cream (*)] 1 bobby TP TID PRN #0 cream [Last Taken Unknown] Melatonin [Melatonin 5 mg] 5 mg PO HS 10/31/16 [Last Taken Unknown] Pantoprazole Sodium [Protonix 40mg (*)] 40 mg PO BID #0 tab 10/31/16 [Last Taken 10/31/16 08:06 40MG] Polyethylene Glycol 3350 [Miralax 17 gm (*)] 17 gm PO DAILY #0 pkt 10/31/16 [ Last Taken 10/31/16 08:06 17 GM] Rosuvastatin Calcium [Crestor 20mg (*)] 40 mg PO DAILY #0 tab 10/31/16 [Last Taken 10/31/16 08:07 40 MG] Sennosides [Senokot] 1 tab PO BID #0 tab 10/31/16 [Last Taken 10/31/16 08:07 1 TAB] Simethicone [Mylicon] 80 mg PO Q6 PRN #0 tab.chew 10/31/16 [Last Taken Unknown] traMADol [Ultram 50 mg (*)] 50 mg PO BID PRN #0 tab 10/31/16 [Last Taken 13:16 50 MG] Carvedilol [Coreg (*)] 3.125 mg PO BIDMEAL #60 tab 11/05/16 [Last Taken Unknown] Tamsulosin HCl [Flomax 0.4 MG (*)] 0.4 mg PO DAILY #30 cap 11/05/16 [Last Taken Unknown] Discharge Medications: Refer to the Discharge Home Medication list for PRN reason. - Orders Services needed: Registered Nurse, Physical Therapy, Occupational Therapy Diet Recommendation: cardiac -low fat low salt Sutures/Sabina Site: remove chest tube sutures in 2-3 days Activity/Weight Bearing Restrictions: WBAT - Follow Up Care Current Providers and Referrals: Jhony Bruce MD [Medical Doctor] - Victoriano Gallardo MD [Medical Doctor] - Patient,NotPresent [Unknown] - As per Instructions Hal Duarte MD [Medical Doctor] -
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
[2016-11-05 12:10] VITALS: BP 105/62; PULSE 69; RESP 18; TEMP 98.1; O2SAT 91
== END 2016-11-05 13:10 | DRG 312 ==
LOC: EDUNIT# → EEVIPCON 18:50 → F2W 11-01 08:08
PROVIDERS: ADMIT Internal Medicine; ATTEND Hospitalist
PROC: 0W9930Z Drainage of Right Pleural Cavity with Drainage Device, Percutaneous Approach (ICD-10-PCS; principal; 2016-10-31)
PROC: 0WP930Z Removal of Drainage Device from Right Pleural Cavity, Percutaneous Approach (ICD-10-PCS; 2016-11-02)
DX: I95.1 Orthostatic hypotension (principal); S27.0XXA Traumatic pneumothorax, initial encounter; G93.40 Encephalopathy, unspecified; R33.9 Retention of urine, unspecified; S22.41XD Multiple fractures of ribs, right side, subsequent encounter for fracture with routine healing; S32.000D Wedge compression fracture of unspecified lumbar vertebra, subsequent encounter for fracture with routine healing; I25.2 Old myocardial infarction; V49.9XXS Car occupant (driver) (passenger) injured in unspecified traffic accident, sequela; Y92.410 Unspecified street and highway as the place of occurrence of the external cause
CPT/HCPCS: 96374; 97112-GP; 97161-GP; 97165-GO; 97530-GO; 97530-GP; 97535-GO; A9500; A9540; A9558; G8978-GP-CJ; G8979-GP-CI; G8987-GO-CJ; G8988-GO-CI; J1170; J1650; J2785

== ENCOUNTER 2016-11-24 07:41 | Observation (INO) | payer OTHER ==
[2016-11-24] MEDS ORDERED: ASPIRIN EC 325 MG TAB PO ONE ×2 (07:43→08:20)
[2016-11-24] MEDS ORDERED: diphenhydrAMINE 25 MG CAP PO ONE ×2 (07:43→08:19)
[2016-11-24] MEDS ORDERED: NS 1,000 ML IV ONE (07:43)
[2016-11-24] MEDS ORDERED: FAMOTIDINE 20 MG TAB PO ONE (07:43)
[2016-11-24] MEDS ORDERED: DIAZEPAM 5 MG TAB PO ONE (07:43)
--- NOTE | 2016-11-24 08:05 | CPEKG ---
Heart Rate: 59 RR Interval: 1017 P-R Interval: 148 QRSD Interval: 80 QT Interval: 456 QTC Interval: 452 P Gordon: 9 QRS Gordon: -34 T Wave Gordon: -56 EKG Severity - ABNORMAL ECG - EKG Impression: SINUS RHYTHM EKG Impression: PROBABLE INFERIOR INFARCT, AGE INDETERMINATE EKG Impression: COMPARED WITH 10/31/2016 AT 5:26 P.M., QT INTERVAL IS NOT PROLONGED Electronically Signed By: Jazz Good 24-Nov-2016 15:09:22
[2016-11-24] MEDS ORDERED: FAMOTIDINE 20 MG TAB ONE (08:20)
[2016-11-24] MEDS ORDERED: DIAZEPAM 5 MG TAB ONE (08:20)
[2016-11-24] MEDS ORDERED: FAMOTIDINE 20 MG/NACL/50 ML BAG IV ONE ×2 (08:21→08:22)
[2016-11-24] MEDS ORDERED: methylPREDNISolone SOD SUCC 125 MG/2 ML VIAL ONE (08:21)
[2016-11-24 08:28] LABS: % IMMATURE GRANULYOCYTES 0.2 % (0.0-1.1); ABSOLUTE IMMATURE GRANULOCYTES 0.01 10^3/uL (0.00-0.10); ADD DIFF? NO; ADD MORPH? NO; ADD SCAN? NO; ATYPICAL LYMPHOCYTE FLAG 0 (0-99); FRAGMENT RBC FLAG 0 (0-99); LEFT SHIFT FLG 0 (0-99); LIPEMIA HEMOLYSIS FLAG 80 (0-99); MEAN CELL HEMOGLOBIN 29.8 pg (27.9-34.1); MEAN CELL HEMOGLOBIN CONCENTR. 32.4 g/dL (32.4-36.7); MEAN CELL VOLUME 91.8 fL (81.5-99.8); MEAN PLATELET VOLUME 10.9 fL (8.7-11.7); PLATELET CLUMPS FLAG 30 (0-99); PLATELET COUNT 158 10^3/uL (150-400); RED BLOOD CELL COUNT 4.03 10^6/uL (4.40-6.38); RED CELL DISTRIBUTION WIDTH 13.4 % (11.5-15.2)
[2016-11-24 08:37] LABS: INR 1.12 (0.83-1.16); PROTIME(PATIENT) 14.3 SEC (12.0-15.0)
[2016-11-24 09:01] LABS: ANION GAP 10 mEq/L (8-16); CALCIUM 9.7 mg/dL (8.5-10.4); CARBON DIOXIDE 26 mEq/l (22-31); CHLORIDE 108 mEq/L (97-110); CHOLESTEROL 123 mg/dL (140-220); CHOLESTEROL/HDL RATIO 2.46 RATIO (1.00-4.97); CREATININE 0.8 mg/dL (0.7-1.3); GLOMERULAR FILTRATION RATE > 60; GLUCOSE 91 mg/dL (70-100); HIGH DENSITY LIPOPROTEIN 50 mg/dL (40-65); LDL/HDL RATIO 1.26 RATIO (1.00-3.64); LOW DENSITY LIPOPROTEIN 63 mg/dL (80-100); MAGNESIUM 1.9 mg/dL (1.6-2.3); NON-HIGH DENSITY LIPOPROTEIN 73 mg/dL (90-129); POTASSIUM 3.9 mEq/L (3.5-5.2); SODIUM 144 mEq/L (134-144); TRIGLYCERIDE 51 mg/dL (40-150); VERY LOW DENSITY LIPOPROTEINS 10 mg/dL (8-25)
[2016-11-24] MEDS ORDERED: LIDOCAINE 1% 30 ML SDV ONE (09:42)
[2016-11-24] MEDS ORDERED: fentaNYL 100 MCG/2 ML INJ ONE (09:42)
[2016-11-24] MEDS ORDERED: HEPARIN 10,000 UNIT/10 ML MDV ONE (09:43)
[2016-11-24] MEDS ORDERED: MIDAZOLAM 2 MG/2 ML VIAL ONE (09:43)
[2016-11-24] MEDS ORDERED: VERAPAMIL 5 MG/2 ML VIAL ONE (09:43)
[2016-11-24] MEDS ORDERED: IOPAMIDOL (ISOVUE-370) 150 ML BTL IV ONE (09:43)
[2016-11-24] MEDS ORDERED: NITROGLYCERIN 1,500 MCG/15 ML VIAL MISC ONE (10:57)
[2016-11-24] MEDS ORDERED: CLOPIDOGREL BISULFATE 75 MG TAB ONE ×2 (11:07→11:36)
--- NOTE | 2016-11-24 11:30 | PDDXCAT ---
Diagnostic Cath Note - . Date: 11/24/16 Intervention: bare-metal stent implantation (see below) *Procedure Indication: Stable angina pectoris at rest consistent with CCS IV angina, stress test revealing evidence of a silent inferior posterolateral myocardial infarction which was considered to be high-risk. Access: right radial artery (a plethysmography trace assisted Elvin's test was used to document dual artery supply to the hand and index finger prior to access ). Procedure: 1. selective coronary angiography 2. left heart catheterization 3. left ventriculogram 4. bare-metal stent implantation in the mid right coronary artery *Materials Coronary Angiography Size: 5F Coronary Angiography and Left Heart Cath Materials: JL3.5, JR4.0, pigtail *Findings-Selective coronary angiography LM: The left main is 8 mm in size and bifurcates into an LAD and circumflex system. Maximal luminal stenosis of 20% with DENISE III flow throughout. LAD: The LAD is 3 mm in size proximally. There is no evidence of flow-limiting disease with DENISE III flow throughout. Maximal luminal stenosis of 20%, which is an eccentric plaque lesion at the level of the diagonal takeoff. LCX: The left circumflex is 3.25 mm in size without evidence of flow-limiting disease and DENISE III flow throughout. RCA: The right coronary artery is dominant (gives rise to PDA and PLV branches) and ~3.5 mm in size. There is a mid right coronary lesion estimated to be 80% plaque area stenosis angiographically with DENISE III flow. These lesion was analyzed with QCA and estimated to be 64% plaque area stenosis. However, I believe this lesion was underestimated as the quantitative measurement did not included a tight "napkin ring" stenosis. *Findings-Left Heart Catheterization LVEDP: 18 mmHg Ejection Fraction: 50% Wall motion analysis: There is basal and inferior wall hypokinesis. The visualized portion of the thoracic aorta revealed three sinuses of Valsalva with no evidence of shirlene aneurysm or dissection. AO: 125/69/87 mmHg *Intervention Intervention: A 5 Thai JR4 guiding catheter was used for guide catheter support. A 0.014" Intuition Guide Wire was advanced to the distal right coronary artery direct fluoroscopic and angiographic guidance. Angiomax bolus and continuous infusion were given continuously with a documented ACT over 300 seconds. A 4.5 x 24 mm Rebel Monorail bare-metal stent was placed in the mid right coronary artery and inflated to a maximum of 11 alvaro of pressure. S/p stent implantation there was excellent angiographic results with 0% residual stenosis and DENISE III flow. *Summary Complications: None Estimated blood loss: <50ml Closure method: TR band Assessment: 1. Severe squaxin vessel coronary artery disease including flow-limiting disease of the mid right coronary artery that was intervened successfully with a 4.5 x 24 mm Rebel Monorail bare-metal stent (80% plaque area stenosis with DENISE III flow pre stent implantation; 0% residual with DENISE III flow post stent implantation). 2. Reduced ejection fraction estimated to be 50% with basal and inferior wall hypokinesis and elevated LVEDP at 18 mmHg. We proceeded with bare-metal stent implantation given the size of the vessel and the patient's history of subdural hematoma to limit the duration of dual antiplatelet therapy to 30 days. Patient Problems: Problems Problem Status Onset Abnormal EKG Acute Anemia due to GI blood loss Acute History of yajaira hole surgery Acute Impaired cognition Acute Impaired mobility and ADLs Acute Palpitations Acute Pleural effusion on right Acute Pneumothorax on right Acute SDH (subdural hematoma) Acute Sciatica Acute Stenosis, spinal, lumbar Acute UTI (urinary tract infection) Acute
[2016-11-24] MEDS ORDERED: NITROGLYCERIN 0.4 MG BTL SL PRN (11:42)
[2016-11-24] MEDS ORDERED: ONDANSETRON 4 MG/2 ML VIAL IVP PRN ×2 (11:42)
[2016-11-24] MEDS ORDERED: ACETAMINOPHEN 325 MG TAB PO PRN (11:42)
[2016-11-24] MEDS ORDERED: ONDANSETRON DISINTEGRATING 4 MG TAB PO PRN (11:42)
[2016-11-24] MEDS ORDERED: CLOPIDOGREL BISULFATE 75 MG TAB PO ONE (11:42)
[2016-11-24] MEDS ORDERED: LORazepam 2 MG/ML INJ IVP PRN (11:42)
[2016-11-24] MEDS ORDERED: TEMAZEPAM 15 MG CAP PO PRN (11:42)
[2016-11-24] MEDS ORDERED: ATROPINE SULFATE 1 MG/10 ML SYR IVP PRN (11:42)
[2016-11-24] MEDS ORDERED: NS 1,000 ML IV SCH (11:45)
--- NOTE | 2016-11-24 11:59 | CPEKG ---
Heart Rate: 67 RR Interval: 896 P-R Interval: 120 QRSD Interval: 88 QT Interval: 456 QTC Interval: 482 P Laurel: 67 QRS Laurel: -36 T Wave Laurel: -56 EKG Severity - ABNORMAL ECG - EKG Impression: SINUS RHYTHM EKG Impression: PROBABLE LEFT ATRIAL ABNORMALITY EKG Impression: PROBABLE INFERIOR INFARCT, AGE INDETERMINATE EKG Impression: BORDERLINE PROLONGED QT INTERVAL EKG Impression: COMPARED WITH PREVIOUS TRACING OF ON THE SAME DAY AT 8:03 A.M., QT INTERVAL EKG Impression: SLIGHTLY LONGER Electronically Signed By: Jazz Good 24-Nov-2016 15:08:56
[2016-11-24] MEDS ORDERED: traMADol 50 MG TAB PO PRN (20:08)
[2016-11-24] MEDS ORDERED: SIMETHICONE 80 MG TAB CHEW PO PRN (20:08)
[2016-11-24] MEDS: SENNOSIDES 1 TAB PO SCH (20:28)
[2016-11-24] MEDS: GABAPENTIN 300 MG CAP PO SCH (20:28)
[2016-11-24] MEDS ORDERED: CARISOPRODOL 350 MG TAB PO SCH (21:00)
[2016-11-24] MEDS ORDERED: MELATONIN 3 MG TAB PO SCH (21:00)
[2016-11-25 05:15] LABS: % IMMATURE GRANULYOCYTES 0.5 % (0.0-1.1); ABSOLUTE IMMATURE GRANULOCYTES 0.04 10^3/uL (0.00-0.10); ADD DIFF? NO; ADD MORPH? NO; ADD SCAN? NO; ATYPICAL LYMPHOCYTE FLAG 0 (0-99); FRAGMENT RBC FLAG 0 (0-99); HEMATOCRIT 32.1 % (40.0-51.0); HEMOGLOBIN 10.5 g/dL (13.7-17.5); LEFT SHIFT FLG 0 (0-99); LIPEMIA HEMOLYSIS FLAG 80 (0-99); MEAN CELL HEMOGLOBIN 30.1 pg (27.9-34.1); MEAN CELL HEMOGLOBIN CONCENTR. 32.7 g/dL (32.4-36.7); MEAN PLATELET VOLUME 11.4 fL (8.7-11.7); PLATELET CLUMPS FLAG 0 (0-99); PLATELET COUNT 144 10^3/uL (150-400); RED BLOOD CELL COUNT 3.49 10^6/uL (4.40-6.38); RED CELL DISTRIBUTION WIDTH 13.3 % (11.5-15.2)
[2016-11-25 05:23] LABS: ALBUMIN 2.7 g/dL (3.5-5.0); ANION GAP 7 mEq/L (8-16); ASPARTATE AMINOTRANSFERASE 16 IU/L (17-59); BILIRUBIN,TOTAL 0.5 mg/dL (0.1-1.4); CALCIUM 9.1 mg/dL (8.5-10.4); CARBON DIOXIDE 21 mEq/l (22-31); CHLORIDE 112 mEq/L (97-110); CREATININE 0.7 mg/dL (0.7-1.3); GLOMERULAR FILTRATION RATE > 60; GLUCOSE 95 mg/dL (70-100); LACTATE DEHYDROGENASE 451 IU/L (313-618); MAGNESIUM 1.9 mg/dL (1.6-2.3); POTASSIUM 3.7 mEq/L (3.5-5.2); SODIUM 140 mEq/L (134-144)
[2016-11-25] MEDS ORDERED: CARVEDILOL 3.125 MG TAB PO SCH (08:00)
--- NOTE | 2016-11-25 08:38 | CPEKG ---
Heart Rate: 70 RR Interval: 857 P-R Interval: 156 QRSD Interval: 90 QT Interval: 452 QTC Interval: 488 P Alexandria: 53 QRS [place]: -24 T Wave [place]: -68 EKG Severity - ABNORMAL ECG - EKG Impression: SINUS RHYTHM EKG Impression: BORDERLINE LEFT AXIS DEVIATION EKG Impression: ABNORMAL T, PROBABLE ISCHEMIA, INFERIOR LEADS EKG Impression: BORDERLINE PROLONGED QT INTERVAL Electronically Signed By: Jazz Good 25-Nov-2016 10:29:10
[2016-11-25] MEDS ORDERED: ASPIRIN EC 325 MG TAB PO SCH (09:00)
[2016-11-25] MEDS ORDERED: CLOPIDOGREL BISULFATE 75 MG TAB PO SCH (09:00)
[2016-11-25] MEDS: SENNOSIDES 1 TAB PO SCH (09:18)
[2016-11-25] MEDS: GABAPENTIN 300 MG CAP PO SCH (09:18)
[2016-11-25 12:08] VITALS: BP 127/77; PULSE 53; RESP 17; TEMP 98.1; O2SAT 93
[2016-11-25] MEDS ORDERED: BISACODYL 10 MG SUPP PR PRN (13:25)
[2016-11-25] MEDS ORDERED: HYDROCORTISONE 2.5% 30 GM CRTUBE TP PRN (13:25)
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
[2016-11-26] MEDS ORDERED: ESCITALOPRAM OXALATE 10 MG TAB PO SCH (09:00)
[2016-11-26] MEDS ORDERED: ROSUVASTATIN CALCIUM 40 MG TAB PO SCH (09:00)
[2016-11-26] MEDS ORDERED: ASPIRIN EC 81 MG TAB PO SCH (09:00)
[2016-11-26] MEDS ORDERED: TAMSULOSIN HCL 0.4 MG CAP PO SCH (09:00)
[2016-11-26] MEDS ORDERED: PANTOPRAZOLE SODIUM 40 MG TAB PO SCH (09:00)
== END 2016-11-25 14:59 | disposition home or self-care (01) ==
LOC: FCATH 07:41 → F2W 11:10
PROVIDERS: ADMIT Internal Medicine Cardiovascular Disease; ATTEND Internal Medicine Cardiovascular Disease
PROC: B2111ZZ Fluoroscopy of Multiple Coronary Arteries using Low Osmolar Contrast (ICD-10-PCS; principal; 2016-11-24)
PROC: 4A023N7 Measurement of Cardiac Sampling and Pressure, Left Heart, Percutaneous Approach (ICD-10-PCS; principal; 2016-11-24)
PROC: B2151ZZ Fluoroscopy of Left Heart using Low Osmolar Contrast (ICD-10-PCS; principal; 2016-11-24)
PROC: 02703DZ Dilation of Coronary Artery, One Artery with Intraluminal Device, Percutaneous Approach (ICD-10-PCS; principal; 2016-11-24)
DX: I21.19 ST elevation (STEMI) myocardial infarction involving other coronary artery of inferior wall (principal); I25.10 Atherosclerotic heart disease of native coronary artery without angina pectoris; I25.5 Ischemic cardiomyopathy; I10 Essential (primary) hypertension; I50.9 Heart failure, unspecified; E78.5 Hyperlipidemia, unspecified
CPT/HCPCS: 92928; 93005; 93458; C1769; C1876; C1887; G0378; J1200; J1644; J2250; J3010; Q9967